=== PATIENT | male | born 1985 | race Caucasian/White ===

== ENCOUNTER 2018-09-07 07:17 | Emergency (ER) | payer MEDICAID ==
[2018-09-07] MEDS ORDERED: cefTRIAXone 1 GM in Sodium Chloride 0.9% 50 ML IV ONE (08:17)
[2018-09-07] MEDS ORDERED: Ketorolac 30 MG/ML SDV IVPUSH ONE (08:18)
--- NOTE | 2018-09-07 08:44 | EDM.PDOC ---
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, 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, 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, called in today to miss work, not working the next 2d (Sat and Sun), otherwise works 40 hr/wk has pain just below the L antecubital fossa where there is redness and swelling , has some pain 10 cm up the inner medial of the LUE where there is tenderness altho no cord or red streak, no axillary LNs PE not c/w localized allergic reaction, is c/w either a cellulitis or localized chemical reaction altho not completely typical of either will give vanco and ceftriaxone d/t possibility of cellulitis with lymphadenitis - Related Data Allergies Allergy/AdvReac Type Severity Reaction Status Date / Time No Known Allergies Allergy Verified 09/07/18 19:42 Home Meds: Home Meds NK [No Known Home Meds] 03/18/16 [History] Past Medical History - Past Health History Medical/Surgical History: Denies Medical/Surgical History HEENT History: Reports: None Cardiovascular History: Reports: None Respiratory History: Reports: None Gastrointestinal History: Reports: None Genitourinary History: Reports: None 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: Reports: None Musculoskeletal History: Reports: None Neurological History: Reports: None Psychiatric History: Reports: Other (See Below) Endocrine/Metabolic History: Reports: None Hematologic History: Reports: None Immunologic History: Reports: None Oncologic (Cancer) History: Reports: None Dermatologic History: Reports: None - Infectious Disease History Infectious Disease History: Reports: Chicken Pox, Mononucleosis - Past Surgical History GI Surgical History: Reports: Appendectomy Social & Family History - Family History Family Medical History: Noncontributory HEENT: Reports: None Cardiac: Reports: None, Hypertension Respiratory: Reports: None GI: Reports: None OBGYN: Reports: - Tobacco Use Smoking Status *Q: Current Every Day Smoker Years of Tobacco use: 20 Packs/Tins Daily: 1 Second Hand Smoke Exposure: Yes - Caffeine Use Caffeine Use: Reports: Coffee, Energy Drinks - Recreational Drug Use Recreational Drug Use: No - Living Situation & Occupation Living situation: Reports: Single Occupation: Other Review of Systems - Review of Systems Review Of Systems: See Below Constitutional: Reports: No Symptoms Eyes: Reports: No Symptoms Ears: Reports: No Symptoms Nose: Reports: No Symptoms Mouth/Throat: Reports: No Symptoms Respiratory: Reports: No Symptoms Cardiovascular: Reports: No Symptoms GI/Abdominal: Reports: No Symptoms Genitourinary: Reports: No Symptoms Musculoskeletal: Reports: Arm Pain Skin: Reports: No Symptoms Neurological: Reports: No Symptoms Psychiatric: Reports: No Symptoms ED EXAM, GENERAL - Physical Exam Exam: See Below Exam Limited By: Other (alert, pleasant, nontoxic, did have difficulty bending his L elbow and taking off his sweatshirt d/t pain) General Appearance: Alert, WD/WN, No Apparent Distress, Other (a) Ears: Normal External Exam Nose: Normal Inspection, Normal Mucosa, No Blood Throat/Mouth: Normal Inspection, Normal Lips, Normal Voice, No Airway Compromise Head: Atraumatic, Normocephalic Neck: Normal Inspection, Supple, Non-Tender, Full Range of Motion. No: Lymphadenopathy (R), Lymphadenopathy (L) Respiratory/Chest: No Respiratory Distress, Lungs Clear, Normal Breath Sounds, No Accessory Muscle Use Cardiovascular: Regular Rate, Rhythm, No Edema, No Murmur, No Rub GI/Abdominal: Soft, Non-Tender, No Distention, No Mass Back Exam: Normal Inspection, Full Range of Motion. No: CVA Tenderness (R), CVA Tenderness (L) Extremities: Normal Inspection, Normal Range of Motion Neurological: Alert, Oriented, CN II-XII Intact, Normal Cognition, No Motor/ Sensory Deficits Psychiatric: Normal Affect, Normal Mood Skin Exam: Warm, Dry, Intact, Other (pain with red warm area below L antecubital fossa in area of 10 x 12 cm, slight edema, no hives, more pink than red, no break in skin, did have track moreno in vein above antecubital fossa, tenderness noted in linear fashion on medial aspect LUE above the L elbow, no axillary LNs, no visible or palpable lymphangitis) Lymphatic: No Adenopathy Course - Vital Signs Last Recorded V/S: Last Vital Signs Temp 36.4 C 09/07/18 11:45 Pulse 80 09/07/18 11:45 Resp 18 09/07/18 11:45 BP 112/70 09/07/18 11:45 Pulse Ox 98 09/07/18 11:45 - Orders/Labs/Meds Labs: Laboratory Tests 09/07/18 09/07/18 09/07/18 Range/Units 08:42 08:42 08:42 WBC 13.6 H (4.5-12.0) X10-3/uL RBC 4.90 (4.30-5.75) x10(6)uL Hgb 14.2 (11.5-15.5) g/dL Hct 41.3 (30.0-51.3) % MCV 84.3 (80-96) fL MCH 29.0 (27.7-33.6) pg MCHC 34.3 (32.2-35.4) g/dL RDW 12.6 (11.5-15.5) % Plt Count 225 (125-369) X10(3)uL MPV 9.1 (7.4-10.4) fL Add Manual Diff Yes Neutrophils % (Manual) 71 (46-82) % Band Neutrophils % 5 (0-6) % Lymphocytes % (Manual) 16 (13-37) % Monocytes % (Manual) 6 (4-12) % Eosinophils % (Manual) 1 (0-5) % Basophils % (Manual) 1 (0-2) % Sodium 138 (135-145) mmol/L Potassium 3.9 (3.5-5.3) mmol/L Chloride 101 (100-110) mmol/L Carbon Dioxide 25 (21-32) mmol/L BUN 12 (7-18) mg/dL Creatinine 1.0 (0.70-1.30) mg/dL Est Cr Clr Drug Dosing TNP Estimated GFR (MDRD) > 60 (>60) BUN/Creatinine Ratio 12.0 (9-20) Glucose 114 (80-116) mg/dL Calcium 8.7 (8.6-10.2) mg/dL Total Bilirubin 1.1 (0.1-1.3) mg/dL AST 32 H (5-25) IU/L ALT 64 H (12-36) U/L Alkaline Phosphatase 137 H (56-112) IU/L C-Reactive Protein 9.1 H* (0.5-0.9) mg/dL Total Protein 7.5 (6.0-8.0) g/dL Albumin 3.6 (3.5-5.2) g/dL Globulin 3.9 g/dL Albumin/Globulin Ratio 0.9 Meds: Medications Discontinued Medications Generic Name Dose Route Start Last Admin Trade Name Alcon PRN Reason Stop Dose Admin Ceftriaxone Sodium 1 gm/ 50 mls @ 200 mls/hr 09/07/18 08:17 09/07/18 08:25 Sodium Chloride IV 09/07/18 08:31 200 mls/hr ONETIME ONE Administration Vancomycin HCl 1 gm/ Sodium 250 mls @ 167 mls/hr 09/07/18 09:00 09/07/18 09: 10 Chloride IV 167 mls/hr Q24H JOYCE Administration Ketorolac Tromethamine 30 mg 09/07/18 08:18 09/07/18 08:25 Toradol IVPUSH 09/07/18 08:19 30 mg ONETIME ONE Administration - Re-Assessments/Exams Free Text/Narrative Re-Assessment/Exam: 09/07/18 10:54 d/w Dr Rico who said that he would see pt pt agrees to be admitted for additional IV antbxs does meet clinical criteria for lymphangitis pt reports no recent blood draws in past few years, did not know about inc'd LFTs, pt cautioned that he may have hepatitis or other serious illness that needed tx'ed 09/07/18 11:15 Dr Rico saw pt, thinks that oral meds will be effective, Dr Rico agreed to d/c pt and said that he would take respons I spoke with Dr Edmondson and Johan Morales who accepted him in admission to [facility] before Andrew could call back with a room assignment, I spoke with the pt who declined to be transferred saying that "I have things to do" pt understands that he meets criteria for hospital admission, that he has a cellulitis complicated by a lymphangitis, that he does not appear to have a blood stream infection altho that is always a concern, that he is at risk for complications including an infected heart valve and even pt states the he prefers to be d/c'ed today on oral meds, says that he will come back if he feel worse clinically doing better after IV ceftriaxone and vanco, no longer with tenderness on the medial aspect of LUE, still red and swollen at proximal forearm altho a little less warm, was sitting in a chair which his arm flexed when I entered room, had not been able to flex arm without considerable discomfort earlier Dr Rico is no longer in the hospital 09/07/18 11:36 upon further discussion, pt did agree to come back to ED tonight for additional IV antbx (ceftriaxone 1 gm IV and vanco 1 gm IV) as well as again in the morning. If his WBC and CRP are improved in AM, along with continued improved PE , I will change him to orals at that juncture. Outpt RUQ u/s scheduled for 3d at 11 AM. Free Text/Narrative Re-Assessment/Exam: Date: 09/07/18 20:59 Pt returned to ED 12h later: as instructed, pt returns in 12h for 2nd dose of IV ceftriaxone 1 gm and vanco 1 gm for cellulitis of L forearm states he has been feeling well on exam the redness has extended 1 cm beyond the inked line in several locations on his L forearm which is bothersome however WBC 13k to 10k in past 12h and CRP essentially unchanged from 9.1 to 11.3 still with soreness when he flexes his L elbow, declined both Toradol and sling agreed to return in AM for a 3rd dose of antbx as well as lab tests (CBC, CRP, hepatitis panel) ASSESS: cellulitis of L forearm (unchanged, perhaps slightly worse, cannot exclude concomitant chemical inflammation from extravasated heroin), lymphangitis L arm (better) PLAN: return in AM, IV removed 09/08/18 10:46 pt returned to ED for a 3rd dose of vanco 1 gm IV and ceftriaxone 1 gm IV. States he is doing better, less pain, no fever, good appetite. LUE shows less redness proximally (about 1.5 cm less than it was yesterday evening) and the same amount of redness distally (extending 1 cm beyond inked margin), some tender still altho less, no axillary/epitrochlear LNs, NT and no red/swell above antecubital fossa. hepatitis panel sent this AM WBC better at 8.9 (was 13.6 and 10.1 previously), CRP essentially unchanged at 9.6 (was 9.1 and 11.3 previously) should do well on oral meds, [facility] called and pharmacist Deb given Rx for generic Augmentin 875/125 mg 1 tab BID #14 NR and generic Bactrim DS 1 BID # 14 NR pt knows to return to ED if it is getting worse, pt know that I will be in the ED the next 2 days and can check his progress if needed pt aware that he needs to be seen at urgent care or a PCP in 1 week to determine if additional antibiotics are needed and to review his hepatitis test results (and possibly order other tests), he does have the liver u/s scheduled on Monday morning at 11 AM pt given a note to be off work on Monday as he still has significant inflammation (but no evidence of abscess or necrosis) and flexing the elbow repetitively is undesirable ASSESS: cellulits of L forearm with lymphangitis, continued steady improvement and response to antbxs PLAN: change to oral antbxs x 1wk, liver u/s in 2d, hepatitis panel pending Departure - Departure Time of Disposition: 11:40 Disposition: Home, Self-Care 01 Clinical Impression: Cellulitis of left forearm, Acute lymphangitis, Elevated liver function tests, Heroin abuse - Discharge Information *PRESCRIPTION DRUG MONITORING PROGRAM REVIEWED*: Not Applicable *COPY OF PRESCRIPTION DRUG MONITORING REPORT IN PATIENT ANDREEA: Not Applicable Instructions: Cellulitis, Adult, Lymphangitis, Adult, Liver Function Tests, Opioid Use Disorder Referrals: PCP,None [Primary Care Provider] - Forms: ED Department Discharge Additional Instructions: Return to the Emergency Department today between 7 and 8 PM as well as tomorrow morning for additional doses of the IV antibiotics. Tomorrow morning, we will recheck your blood counts as well as send off blood for hepatitis testing. Rest for the next several days. If you are feeling worse in any way (e.g., new symptoms, fever, shakes, chills) , you will need to come to the Emergency Department immediately as this could indicate the development of a blood stream infection despite the antibiotics.
[2018-09-07 11:58] VITALS: BP 112/70
== END 2018-09-07 11:50 | disposition home or self-care (01) ==
LOC: FB.ED 07:17
DX: L03.114 Cellulitis of left upper limb (principal); L03.91 Acute lymphangitis, unspecified; R79.89 Other specified abnormal findings of blood chemistry; F11.10 Opioid abuse, uncomplicated; F17.210 Nicotine dependence, cigarettes, uncomplicated
CPT/HCPCS: 36415; 80053; 85025; 86140; 87040; 96365; 96366; 96375; 99283; J0696; J1885; J3370; J7050

== ENCOUNTER 2019-12-24 18:55 | Emergency (ER) | payer MEDICAID ==
[2019-12-24] MEDS ORDERED: Ondansetron 4 MG/2 ML SDV IVPUSH ONE (19:01)
[2019-12-24] MEDS ORDERED: Sodium Chloride 0.9% 1,000 ML IV ONE (19:01)
[2019-12-24] MEDS ORDERED: Potassium Chloride 20 MEQ Tab.ER PO ONE (19:26)
--- NOTE | 2019-12-24 19:30 | EDM.PDOC ---
ED HPI GENERAL MEDICAL PROBLEM - General Chief Complaint: General Stated Complaint: OVER HEATED Time Seen by Provider: 12/24/19 18:55 Source of Information: Reports: Patient History Limitations: Reports: No Limitations - History of Present Illness INITIAL COMMENTS - FREE TEXT/NARRATIVE: Patient was brought to the ED because of weakness and dizziness. He was under the sun all day and it's 97'F outside. He also c/o headache,denies any N/V. Headache Pain Score (Numeric/FACES): 3 - Related Data Allergies Allergy/AdvReac Type Severity Reaction Status Date / Time No Known Allergies Allergy Verified 12/24/19 18:59 Home Meds: Home Meds Buprenorphine HCl/Naloxone HCl [Suboxone 4 mg-1 mg Sl Film] 8 mg DAILY 12/24/19 [History] Potassium Chloride [Klor-Con M20] 40 meq PO TID #6 tab.er 12/24/19 [Rx] Past Medical History - Past Health History Medical/Surgical History: Denies Medical/Surgical History HEENT History: Reports: None Cardiovascular History: Reports: None Respiratory History: Reports: None Gastrointestinal History: Reports: Bowel Obstruction Genitourinary History: Reports: None 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 Musculoskeletal History: Reports: Fracture Other Musculoskeletal History: hx fx L radial & ulnar fx Neurological History: Reports: Migraines Psychiatric History: Reports: Addiction, Anxiety, Depression, Other (See Below) Other Psychiatric History: hx meth & heroin, was in tx for both Endocrine/Metabolic History: Reports: None Hematologic History: Reports: None Immunologic History: Reports: None Oncologic (Cancer) History: Reports: None Dermatologic History: Reports: None - Infectious Disease History Infectious Disease History: Reports: Chicken Pox - Past Surgical History GI Surgical History: Reports: Appendectomy, Other (See Below) Other GI Surgeries/Procedures: exp lap with EDE Musculoskeletal Surgical History: Reports: None Social & Family History - Family History Family Medical History: Noncontributory HEENT: Reports: None Cardiac: Reports: Hypertension, None Respiratory: Reports: None GI: Reports: None OBGYN: Reports: - Tobacco Use Smoking Status *Q: Current Every Day Smoker Years of Tobacco use: 20 Packs/Tins Daily: 1.5 - Caffeine Use Caffeine Use: Reports: Coffee, Energy Drinks, Soda, Tea - Recreational Drug Use Recreational Drug Use: Yes Recreational Drug Type: Reports: Heroin, Methamphetamine Other Recreational Drug Type: Last used around 1yr ago. Was in tx for same, takes Suboxone to help. - Living Situation & Occupation Living situation: Reports: Single Occupation: Other ED ROS GENERAL - Review of Systems Review Of Systems: See Below Constitutional: Reports: No Symptoms HEENT: Reports: No Symptoms Respiratory: Reports: No Symptoms Cardiovascular: Reports: No Symptoms Endocrine: Reports: No Symptoms GI/Abdominal: Reports: No Symptoms : Reports: No Symptoms Musculoskeletal: Reports: No Symptoms Skin: Reports: No Symptoms Neurological: Reports: No Symptoms Psychiatric: Reports: No Symptoms Hematologic/Lymphatic: Reports: No Symptoms ED EXAM, GENERAL - Physical Exam Exam: See Below Exam Limited By: No Limitations General Appearance: Alert, No Apparent Distress Eye Exam: Bilateral Eye: PERRL Ears: Normal External Exam, Normal Canal Nose: Normal Inspection, Normal Mucosa Throat/Mouth: Normal Inspection, Normal Lips Head: Atraumatic, Normocephalic Neck: Normal Inspection, Supple, Non-Tender, Full Range of Motion Respiratory/Chest: No Respiratory Distress, Lungs Clear, Normal Breath Sounds Cardiovascular: Normal Peripheral Pulses, Regular Rate, Rhythm, No Edema GI/Abdominal: Normal Bowel Sounds, Soft, Non-Tender, No Organomegaly Back Exam: Normal Inspection, Full Range of Motion Extremities: Normal Inspection, Normal Range of Motion, Non-Tender Neurological: Alert, Oriented, CN II-XII Intact, Normal Cognition, Normal Gait Course - Vital Signs Text/Narrative:: Labs reviewed and discussed with patient and verbalized full understanding K-3.3 NS 1 L bolus Klor con 40 meq po x1 Last Recorded V/S: Last Vital Signs Temp 36.7 C 12/24/19 18:55 Pulse 51 L 12/24/19 20:49 Resp 20 12/24/19 18:55 BP 120/75 12/24/19 20:49 Pulse Ox 100 12/24/19 20:49 - Orders/Labs/Meds Labs: Laboratory Tests 12/24/19 Range/Units 19:07 Sodium 145 (135-145) mmol/L Potassium 3.3 L (3.5-5.3) mmol/L Chloride 107 D (100-110) mmol/L Carbon Dioxide 27 (21-32) mmol/L BUN 17 (7-18) mg/dL Creatinine 1.2 (0.70-1.30) mg/dL Est Cr Clr Drug Dosing 93.41 mL/min Estimated GFR (MDRD) > 60 (>60) BUN/Creatinine Ratio 14.2 (9-20) Glucose 118 H (80-116) mg/dL Calcium 9.7 (8.6-10.2) mg/dL Meds: Medications Discontinued Medications Generic Name Dose Route Start Last Admin Trade Name Alcon PRN Reason Stop Dose Admin Sodium Chloride 1,000 mls @ 999 mls/hr 12/24/19 19:01 12/24/19 19:47 Normal Saline IV 12/24/19 20:01 999 mls/hr .BOLUS ONE Administration Ondansetron HCl 4 mg 12/24/19 19:01 12/24/19 19:47 Zofran IVPUSH 12/24/19 19:02 4 mg ONETIME ONE Administration Potassium Chloride 40 meq 12/24/19 19:26 12/24/19 20:31 Klor-Con M20 PO 12/24/19 19:27 40 meq ONETIME ONE Administration Departure - Departure Time of Disposition: 20:30 Disposition: Home, Self-Care 01 Condition: Good Clinical Impression: Heat exhaustion, Hypokalemia - Discharge Information Prescriptions: Potassium Chloride [Klor-Con M20] 40 meq PO TID #6 tab.er Instructions: Heat Exhaustion, Preventing Heat Exhaustion, Adult Referrals: PCP,None [Primary Care Provider] - Forms: ED Department Discharge Additional Instructions: please read discharge instructions on heat exhaustion increase oral fluids at least 2 liters a day tylenol 1000 mg every 8 hours as needed for nausea/vomiting klor con 2 tablets 3 times daily for 1 day follow up as needed Sepsis Event Note (ED) - Evaluation Sepsis Screening Result: No Definite Risk
[2019-12-25 01:34] VITALS: BP 120/75; PULSE 51
== END 2019-12-24 21:00 | disposition home or self-care (01) ==
LOC: FB.ED 18:55
DX: T67.5XXA Heat exhaustion, unspecified, initial encounter (principal); E87.6 Hypokalemia; F17.210 Nicotine dependence, cigarettes, uncomplicated; Z79.899 Other long term (current) drug therapy
CPT/HCPCS: 36415; 80048; 96374; 99284; A9270; J2405; J7030

== ENCOUNTER 2020-09-09 21:09 | Emergency (ER) | payer MEDICAID ==
[2020-09-09] MEDS ORDERED: LORazepam 2 MG/ML SDV IM ONE (22:04)
[2020-09-09] MEDS ORDERED: LORazepam 2 MG/ML SDV IVPUSH ONE ×3 (22:08→23:31)
--- NOTE | 2020-09-09 22:12 | EDM.PDOC ---
ED HPI GENERAL MEDICAL PROBLEM - General Chief Complaint: Drug or Alcohol Abuse Time Seen by Provider: 09/09/20 22:08 Source of Information: Reports: Family History Limitations: Reports: Intoxication - History of Present Illness INITIAL COMMENTS - FREE TEXT/NARRATIVE: Parvez was brought in by mom,after taking some unknown drugs. He alleges to have been given by his ex,but the mother refutes these claims. He is paranoid,restless and anxious. He is a h/o drug abuse. He denies and SOB,or chest pain. - Related Data Allergies Allergy/AdvReac Type Severity Reaction Status Date / Time No Known Allergies Allergy Verified 09/09/20 22:04 Home Meds: Home Meds Buprenorphine HCl/Naloxone HCl [Suboxone 4 mg-1 mg Sl Film] 8 mg DAILY 12/24/19 [History] Potassium Chloride [Klor-Con M20] 40 meq PO TID #6 tab.er 12/24/19 [Rx] Past Medical History - Past Health History Medical/Surgical History: Denies Medical/Surgical History HEENT History: Reports: None Cardiovascular History: Reports: None Respiratory History: Reports: None Gastrointestinal History: Reports: Bowel Obstruction Genitourinary History: Reports: None 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 Musculoskeletal History: Reports: Fracture Other Musculoskeletal History: hx fx L radial & ulnar fx Neurological History: Reports: Migraines Psychiatric History: Reports: Addiction, Anxiety, Depression, Other (See Below) Other Psychiatric History: hx meth & heroin, was in tx for both Endocrine/Metabolic History: Reports: None Hematologic History: Reports: None Immunologic History: Reports: None Oncologic (Cancer) History: Reports: None Dermatologic History: Reports: None - Infectious Disease History Infectious Disease History: Reports: Chicken Pox - Past Surgical History GI Surgical History: Reports: Appendectomy, Other (See Below) Other GI Surgeries/Procedures: exp lap with EDE Musculoskeletal Surgical History: Reports: None Social & Family History - Family History Family Medical History: No Pertinent Family History HEENT: Reports: None Cardiac: Reports: Hypertension, None Respiratory: Reports: None GI: Reports: None OBGYN: Reports: - Caffeine Use Caffeine Use: Reports: Coffee, Energy Drinks, Soda, Tea - Living Situation & Occupation Living situation: Reports: Single Occupation: Other ED ROS GENERAL - Review of Systems Review Of Systems: Comprehensive ROS is negative, except as noted in HPI. - Physical Exam Exam: See Below Exam Limited By: Intoxication General Appearance: Alert, WD/WN, Anxious Ears: Normal External Exam Nose: Normal Inspection Throat/Mouth: Normal Inspection Neck: Normal Inspection Respiratory/Chest: No Respiratory Distress, Lungs Clear Back Exam: Normal Inspection Extremities: Normal Inspection Psychiatric: Anxious Course - Vital Signs Last Recorded V/S: Last Vital Signs Temp 97.6 F 09/10/20 05:30 Pulse 86 09/10/20 05:30 Resp 16 09/10/20 05:30 BP 116/84 09/10/20 05:30 Pulse Ox 98 09/10/20 05:30 - Orders/Labs/Meds Labs: Laboratory Tests 09/09/20 09/09/20 09/09/20 Range/Units 21:20 21:20 21:25 WBC 12.0 H (3.2-10.1) x10-3/uL RBC 5.15 (3.90-5.90) x10(6)uL Hgb 14.6 (12.9-17.7) g/dL Hct 43.6 (38.3-50.1) % MCV 84.6 (80.8-98.7) fL MCH 28.4 (27.0-33.3) pg MCHC 33.5 (28.7-35.3) g/dL RDW 13.1 (12.4-15.0) % Plt Count 232 (117-477) x10(3)uL MPV 8.9 (6.7-11.0) fL Neut % (Auto) 74.2 H (40.3-71.8) % Lymph % (Auto) 19.3 (15.8-45.3) % Gooding % (Auto) 5.9 (5.5-15.2) % Eos % (Auto) 0.2 (0.1-6.8) % Baso % (Auto) 0.4 (0.3-3.8) % Neut # (Auto) 8.9 H (1.7-6.9) x10-3/uL Lymph # (Auto) 2.3 (0.5-4.5) x10-3/uL Gooding # (Auto) 0.7 (0.0-1.2) x10-3/uL Eos # (Auto) 0.0 (0.0-0.6) x10-3/uL Baso # (Auto) 0.0 (0.0-0.3) x10-3/uL Sodium 140 (135-145) mmol/L Potassium 3.5 (3.5-5.3) mmol/L Chloride 101 D (100-110) mmol/L Carbon Dioxide 23 (21-32) mmol/L BUN 23 H (7-18) mg/dL Creatinine 1.4 H (0.70-1.30) mg/dL Est Cr Clr Drug Dosing TNP Estimated GFR (MDRD) 57 L (>60) BUN/Creatinine Ratio 16.4 (9-20) Glucose 131 H (80-116) mg/dL Calcium 9.6 (8.6-10.2) mg/dL Urine Opiates Screen (NEGATIVE) Ur Oxycodone Screen (NEGATIVE) Ur Propoxyphene Screen (NEGATIVE) Ur Barbituates Screen (NEGATIVE) Ur Tricyclics Screen (NEGATIVE) Ur Phencyclidine Scrn (NEGATIVE) Ur Amphetamine Screen (NEGATIVE) Urine MDMA Screen (NEGATIVE) U Benzodiazepines Scrn (NEGATIVE) U Cocaine Metab Screen (NEGATIVE) U Marijuana (THC) Screen (NEGATIVE) Ethyl Alcohol < 0.03 (<0.03) % 09/09/20 Range/Units 21:35 WBC (3.2-10.1) x10-3/uL RBC (3.90-5.90) x10(6)uL Hgb (12.9-17.7) g/dL Hct (38.3-50.1) % MCV (80.8-98.7) fL MCH (27.0-33.3) pg MCHC (28.7-35.3) g/dL RDW (12.4-15.0) % Plt Count (117-477) x10(3)uL MPV (6.7-11.0) fL Neut % (Auto) (40.3-71.8) % Lymph % (Auto) (15.8-45.3) % Gooding % (Auto) (5.5-15.2) % Eos % (Auto) (0.1-6.8) % Baso % (Auto) (0.3-3.8) % Neut # (Auto) (1.7-6.9) x10-3/uL Lymph # (Auto) (0.5-4.5) x10-3/uL Gooding # (Auto) (0.0-1.2) x10-3/uL Eos # (Auto) (0.0-0.6) x10-3/uL Baso # (Auto) (0.0-0.3) x10-3/uL Sodium (135-145) mmol/L Potassium (3.5-5.3) mmol/L Chloride (100-110) mmol/L Carbon Dioxide (21-32) mmol/L BUN (7-18) mg/dL Creatinine (0.70-1.30) mg/dL Est Cr Clr Drug Dosing Estimated GFR (MDRD) (>60) BUN/Creatinine Ratio (9-20) Glucose (80-116) mg/dL Calcium (8.6-10.2) mg/dL Urine Opiates Screen Negative (NEGATIVE) Ur Oxycodone Screen Negative (NEGATIVE) Ur Propoxyphene Screen Negative (NEGATIVE) Ur Barbituates Screen Negative (NEGATIVE) Ur Tricyclics Screen Negative (NEGATIVE) Ur Phencyclidine Scrn Negative (NEGATIVE) Ur Amphetamine Screen Positive H (NEGATIVE) Urine MDMA Screen Positive H (NEGATIVE) U Benzodiazepines Scrn Negative (NEGATIVE) U Cocaine Metab Screen Negative (NEGATIVE) U Marijuana (THC) Screen Negative (NEGATIVE) Ethyl Alcohol (<0.03) % Meds: Medications Discontinued Medications Generic Name Dose Route Start Last Admin Trade Name Freq PRN Reason Stop Dose Admin Haloperidol Lactate 2 mg 09/09/20 23:40 09/09/20 23:57 Haldol IM 09/09/20 23:41 2 mg ONETIME ONE Administration Haloperidol Lactate 2 mg 09/10/20 02:31 09/10/20 02:41 Haldol IM 09/10/20 02:32 2 mg ONETIME ONE Administration Sodium Chloride 1,000 mls @ 999 mls/hr 09/09/20 22:15 09/09/20 22:10 Normal Saline IV 999 mls/hr ASDIRECTED JOYCE Administration Lorazepam 1 mg 09/09/20 22:04 09/09/20 22:10 Ativan IM 09/09/20 22:05 Not Given ONETIME ONE Lorazepam 1 mg 09/09/20 22:08 09/09/20 22:10 Ativan IVPUSH 09/09/20 22:09 1 mg ONETIME ONE Administration Lorazepam 1 mg 09/09/20 22:39 09/09/20 22:59 Ativan IVPUSH 09/09/20 22:40 1 mg ONETIME ONE Administration Lorazepam 1 mg 09/09/20 23:31 09/09/20 23:39 Ativan IVPUSH 09/09/20 23:32 1 mg ONETIME ONE Administration Departure - Departure Time of Disposition: 05:30 Disposition: Home, Self-Care 01 Condition: Fair Clinical Impression: Drug abuse - Discharge Information Instructions: Amphetamines Use Disorder, Substance Use Disorder Referrals: PCP,None [Primary Care Provider] - Forms: ED Department Discharge Additional Instructions: Please rest for the day. Eat well and hydrate yourself at home. Establish a primary care provider and follow up. Please stop using street drugs. May call for questions or come back to the ER if symptoms get acutely worse. Sepsis Event Note (ED) - Evaluation Sepsis Screening Result: No Definite Risk - Focused Exam Vital Signs: Vital Signs Temp Pulse Resp BP Pulse Ox 09/10/20 05:30 97.6 F 86 16 116/84 98 - Problem List & Annotations (1) TEX (acute kidney injury) SNOMED Code(s): 98311731, 09942254 Code(s): N17.9 - ACUTE KIDNEY FAILURE, UNSPECIFIED Status: Acute (2) Drug abuse SNOMED Code(s): 87678967 Code(s): F19.10 - OTHER PSYCHOACTIVE SUBSTANCE ABUSE, UNCOMPLICATED Status: Acute - Problem List Review Problem List Initiated/Reviewed/Updated: Yes - Assessment/Plan Plan: 1 L NS. Lorazepam 1 mg. Will DC home. We notified poison control,and law enforcement was in to talk to him.We observed him in the ED for more than 6hrs. I gave him a total of 3 mg of Lorazepam and 2 mg of Haldol,which made the restlessness better,and hallucinations to resolve. He was discharged int he care of his mother.
[2020-09-09] MEDS ORDERED: Sodium Chloride 0.9% 1,000 ML IV SCH (22:15)
[2020-09-09] MEDS ORDERED: Haloperidol Lactate 5 MG/ML SDV IM ONE (23:40)
[2020-09-10] MEDS ORDERED: Haloperidol Lactate 5 MG/ML SDV IM ONE (02:31)
[2020-09-10 06:33] VITALS: BP 116/84; PULSE 86
== END 2020-09-10 05:50 | disposition home or self-care (01) ==
LOC: FB.ED 21:09
DX: F19.10 Other psychoactive substance abuse, uncomplicated (principal)
CPT/HCPCS: 36415; 80048; 80305-QW; 80307; 85025; 96372; 96374; 96376; 99284-25; J1630; J2060; J7030

== ENCOUNTER 2020-09-14 03:01 | Emergency (ER) | payer MEDICAID ==
[2020-09-14 03:15] VITALS: BP 123/87; PULSE 76
--- NOTE | 2020-09-14 03:36 | EDM.PDOC ---
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 h/o heroin/meth/MDMA use Right Oral/Mouth Pain Score (Numeric/FACES): 7 - Related Data Allergies Allergy/AdvReac Type Severity Reaction Status Date / Time No Known Allergies Allergy Verified 09/09/20 22:04 Home Meds: Home Meds Buprenorphine HCl/Naloxone HCl [Suboxone 4 mg-1 mg Sl Film] 8 mg DAILY 12/24/19 [History] Potassium Chloride [Klor-Con M20] 40 meq PO TID #6 tab.er 12/24/19 [Rx] Amoxicillin 500 mg PO TID #21 tablet 09/14/20 [Rx] Amoxicillin 500 mg PO TID #21 tablet 09/14/20 [Rx] Past Medical History - Past Health History Medical/Surgical History: Denies Medical/Surgical History HEENT History: Reports: None Cardiovascular History: Reports: None Respiratory History: Reports: None Gastrointestinal History: Reports: Bowel Obstruction Genitourinary History: Reports: None 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 Musculoskeletal History: Reports: Fracture Other Musculoskeletal History: hx fx L radial & ulnar fx Neurological History: Reports: Migraines Psychiatric History: Reports: Addiction, Anxiety, Depression, Other (See Below) Other Psychiatric History: hx meth & heroin, was in tx for both Endocrine/Metabolic History: Reports: None Hematologic History: Reports: None Immunologic History: Reports: None Oncologic (Cancer) History: Reports: None Dermatologic History: Reports: None - Infectious Disease History Infectious Disease History: Reports: Chicken Pox - Past Surgical History GI Surgical History: Reports: Appendectomy, Other (See Below) Other GI Surgeries/Procedures: exp lap with EDE Musculoskeletal Surgical History: Reports: None Social & Family History - Family History Family Medical History: No Pertinent Family History HEENT: Reports: None Cardiac: Reports: Hypertension, None Respiratory: Reports: None GI: Reports: None OBGYN: Reports: - Tobacco Use Tobacco Use Status *Q: Current Every Day Tobacco User Years of Tobacco use: 20 Packs/Tins Daily: 1 - Caffeine Use Caffeine Use: Reports: Coffee, Soda - Recreational Drug Use Recreational Drug Use: Yes Drug Use in Last 12 Months: Yes Recreational Drug Type: Reports: Ecstasy, Methamphetamine - Living Situation & Occupation Living situation: Reports: Single Occupation: Other ED ROS GENERAL - Review of Systems Review Of Systems: See Below Constitutional: Reports: No Symptoms HEENT: Reports: Dental Pain Respiratory: Reports: No Symptoms Cardiovascular: Reports: No Symptoms Endocrine: Reports: No Symptoms GI/Abdominal: Reports: No Symptoms : Reports: No Symptoms Musculoskeletal: Reports: No Symptoms Skin: Reports: No Symptoms Neurological: Reports: No Symptoms Psychiatric: Reports: No Symptoms Hematologic/Lymphatic: Reports: No Symptoms Immunologic: Reports: No Symptoms ED EXAM, GENERAL - Physical Exam Exam: See Below Exam Limited By: No Limitations General Appearance: Alert, WD/WN Ears: Hearing Grossly Normal Nose: Normal Inspection Throat/Mouth: Normal Lips, Normal Voice, No Airway Compromise, Other (mild swell over R mandible, no LNs, tooth #32 with red slight swollen gingiva, either eroded to gum line or not fully emerged (still has molars)) Head: Atraumatic, Normocephalic Neck: Normal Inspection, Supple, Non-Tender. No: Lymphadenopathy (R), Lymphadenopathy (L) Respiratory/Chest: No Respiratory Distress Cardiovascular: Regular Rate, Rhythm Psychiatric: Anxious Skin Exam: Warm, Dry, Intact, Normal Color, No Rash Lymphatic: No Adenopathy Course - Vital Signs Last Recorded V/S: Last Vital Signs Temp 36.4 C 09/14/20 03:09 Pulse 76 09/14/20 03:09 Resp 18 09/14/20 03:09 BP 123/87 09/14/20 03:09 Pulse Ox 100 09/14/20 03:09 - Re-Assessments/Exams Free Text/Narrative Re-Assessment/Exam: 09/14/20 03:45 there was some question where the amox when to [facility], so it was entered a 2nd time, yet appeared to have been sent electronically to [email or web address] correctly the first time. There is only one Rx for amox 500 tid #21. Departure - Departure Time of Disposition: 03:33 Disposition: Home, Self-Care 01 Condition: Good Clinical Impression: Pain, dental, Gingivitis - Discharge Information *PRESCRIPTION DRUG MONITORING PROGRAM REVIEWED*: Not Applicable *COPY OF PRESCRIPTION DRUG MONITORING REPORT IN PATIENT ANDREEA: Not Applicable Prescriptions: Amoxicillin 500 mg PO TID #21 tablet Amoxicillin 500 mg PO TID #21 tablet Referrals: PCP,None [Primary Care Provider] - Additional Instructions: For infection, take amoxicillin 500 mg 1 tab 3 times a day for 7 days. For pain, take acetaminophen 500 mg 2 tabs and ibuprofen 200 mg 4 tabs 3 times a day for 7 days. For pain, put a thin layer of 2% viscous lidocaine on a cotton ball and bite down every hour as needed. Use ice to mandible for 5-10 minutes every hour as needed. Chew on the other side. Drink cool liquids and eat cool, soft food. Call your dentist today for an appointment later this week. Sepsis Event Note (ED) - Evaluation Sepsis Screening Result: No Definite Risk - Focused Exam Vital Signs: Vital Signs Temp Pulse Resp BP Pulse Ox 09/14/20 03:09 36.4 C 76 18 123/87 100
[2020-09-14] MEDS: Lidocaine 2% Viscous Solution 15 ML Cup PO ONE (03:41)
[2020-09-14] MEDS: Ketorolac 60 MG/2 ML SDV IM ONE (03:41)
[2020-09-14] MEDS: Amoxicillin 500 MG Cap PO ONE (03:41)
== END 2020-09-14 03:53 | disposition home or self-care (01) ==
LOC: FB.ED 03:01
DX: K05.10 Chronic gingivitis, plaque induced (principal); Z72.0 Tobacco use
CPT/HCPCS: 96372; 99282; 99283; A9270-GY; J1885